=== PATIENT | male | born 1975 ===

== ENCOUNTER 2017-10-11 11:00 | Outpatient (CLI) | payer OTHER | END 2017-10-11 11:01 | disposition home or self-care (01) | LOC: SLR 11:00 | PROVIDERS: ATTEND Otolaryngology | DX: G47.30 Sleep apnea, unspecified (principal) | CPT/HCPCS: G0399 ==

== ENCOUNTER 2017-11-13 11:00 | Outpatient (CLI) | payer OTHER | END 2017-11-13 11:01 | disposition home or self-care (01) | LOC: SLR 11:00 | PROVIDERS: ATTEND Otolaryngology | DX: G47.33 Obstructive sleep apnea (adult) (pediatric) (principal) | CPT/HCPCS: 95811 ==

== ENCOUNTER 2020-05-02 11:00 | Outpatient (CLI) | payer BC | END 2020-05-03 11:00 | disposition home or self-care (01) | LOC: SLR 11:00 | PROVIDERS: ATTEND Otolaryngology | DX: G47.33 Obstructive sleep apnea (adult) (pediatric) (principal); R40.0 Somnolence | CPT/HCPCS: G0399 ==

== ENCOUNTER 2020-06-06 11:01 | Outpatient (CLI) | payer BC | END 2020-06-06 11:02 | disposition home or self-care (01) | LOC: SLR 11:01 | PROVIDERS: ATTEND Otolaryngology | DX: G47.30 Sleep apnea, unspecified (principal) | CPT/HCPCS: 95811 ==